=== PATIENT | female | born 1990 | race Caucasian/White ===

== ENCOUNTER 2019-12-16 21:18 | Emergency (ER) | payer BC, SELFPAY ==
--- NOTE | ~2019-12-16 | XR_ITS ---
XR finger 4th LT min 2V 12/16/2019 22:06 Indication: Trauma to the left fourth finger. Smashed finger in car door. Procedure: 3 views left fourth finger Comparison: No prior studies for comparison. Findings: There is a nondisplaced tuft fracture left fourth distal phalanx. Mild soft tissue swelling . No foreign bodies. Impression: 1: Nondisplaced tuft fracture left fourth distal phalanx. Reviewed, dictated and finalized at location A. Impression: 1: Nondisplaced tuft fracture left fourth distal phalanx.
[2019-12-16 21:28] VITALS: BP 143/68; PULSE 84; RESP 15; TEMP 36.4; O2SAT 98
--- NOTE | 2019-12-16 21:56 | ED.GENADULT ---
HPI - General Adult General Chief complaint: Extremity Injury, Upper Stated complaint: Smashed finger in door Time Seen by Provider: 12/16/19 21:51 History of Present Illness HPI narrative: Patient is a 29 y/o female complaining severe, pulsating pain in left ring finger. She states that she smashed her finger in car door 2 hours ago. She has no pain radiation. Pain is worse with each heart beat. She denies other injury. Related Data Allergies Allergy/AdvReac Type Severity Reaction Status Date / Time No Known Allergies Allergy Verified 12/16/19 22:12 Review of Systems Constitutional: Constitutional: Denies chills, Denies fever(s), Denies headache(s) and Denies weakness Eyes: Eyes: Denies blurry vision ENT: Denies headache(s) and Denies neck pain Cardiovascular: Cardiovascular: Denies chest pain and Denies dyspnea Respiratory: Respiratory: Denies cough and Denies dyspnea Gastrointestinal: Gastrointestinal: Denies abdominal pain, Denies diarrhea, Denies nausea and Denies vomiting Genitourinary: Genitourinary: Denies hematuria and Denies dysuria Musculoskeletal: Musculoskeletal: Denies back pain, Reports arthralgias (left finger pain) and Denies neck pain Neurologic: Denies headache(s) and Denies weakness Exam Const: General: no acute distress and well developed HENMT: Head: normocephalic Ears: external ears normal General nose exam: Normal external nose present Eyes: General: appearance normal, both eyes and all related structures Conjunctivae: conjunctivae normal Chest: Chest palpation & inspection: normal inspection of the chest Resp: Effort & Inspection: normal respiratory effort Skin: General skin exam: normal color and turgor normal Trauma: other (bruise left 4th finger tip, subungual hematoma) Extrem: General: normal to inspection, full ROM and no pedal edema Psych: Appearance: grossly normal Mental Status: mental status grossly normal Affect: normal affect Course Reevaluation(s) Reevaluation #1: Discussed with patient xray results. Offer patient nail trephination for subungual hematoma. However, patient declined. Date: 12/16/19 Time: 22:35 Vital Signs Vital signs: Vital Signs Temperature 36.4 C 12/16/19 21:28 Pulse Rate 84 12/16/19 21:28 Respiratory Rate 15 12/16/19 21:28 Blood Pressure 143/68 H 07/06/20 21:28 Pulse Oximetry 98 12/16/19 21:28 Temperature 36.4 C 12/16/19 21:28 Pulse Rate 83 12/16/19 22:53 Respiratory Rate 16 12/16/19 22:53 Blood Pressure 151/73 H 12/16/19 22:53 Pulse Oximetry 100 12/16/19 22:53 Medical Decision Making Vital Signs Vital Signs: Vital Signs Temperature 36.4 C 12/16/19 21:28 Pulse Rate 84 12/16/19 21:28 Respiratory Rate 15 12/16/19 21:28 Blood Pressure 143/68 H 12/16/19 21:28 Pulse Oximetry 98 12/16/19 21:28 Temperature 36.4 C 12/16/19 21:28 Pulse Rate 83 12/16/19 22:53 Respiratory Rate 16 12/16/19 22:53 Blood Pressure 151/73 H 12/16/19 22:53 Pulse Oximetry 100 12/16/19 22:53 Discharge Plan Discharge Clinical Impression: Fracture of finger, distal phalanx, left, closed, Subungual hematoma of finger of left hand Patient Disposition: Home, Self-Care Condition: Stable Instructions: Subungual Hematoma (ED), Finger Fracture (ED) Prescriptions: New hydrocodone-acetaminophen [[place]] 5-325 mg tablet 1 tablet PO Q6H PRN (Reason: pain) Qty: 15 RF: 0 Follow-up/Referrals: PHYSICIAN,SEWAGE PLANT OPERATOR [Primary Care Provider] - Jordyn Carvajal DO [Physician] - 1 Week Stand Alone Forms: Work/School Release IP Discharge Date/Time: 12/16/19 22:55
--- NOTE | 2019-12-16 22:52 | PC.NURSE ---
pt had her own finger splint that was applied prior to leaving.
[2019-12-16 22:53] VITALS: BP 151/73; PULSE 83; RESP 16; O2SAT 100
== END 2019-12-16 22:55 | disposition home or self-care (01) ==
PROVIDERS: Emergency Provider Emergency Medicine
DX: S62.635A Displaced fracture of distal phalanx of left ring finger, initial encounter for closed fracture (principal); V48.4XXA Person boarding or alighting a car injured in noncollision transport accident, initial encounter
CPT/HCPCS: 73140; 99284

== ENCOUNTER 2020-01-23 11:25 | Observation (INO) | payer BC, SELFPAY ==
--- NOTE | 2020-01-23 11:54 | PM.IMHP ---
H&P: HPI History of Present Illness Date/Time: 01/23/20 11:54 Chief complaint: hyperemesis Narrative: Luciana Rodriguez is a 29 year old female with n/v unable to keep food and fluid down for 3 days new ob hyperemesis Review of Systems Review of Systems: All systems reviewed & are unremarkable except as noted in HPI and below PMFSH Family History Family History Grandparent Cancer Social History Social History (Updated 01/23/20 @ 20:13 by Caio Collins MD) Smoking packs per day: 0.25 Smoking cigarettes per day: 5.0 Years smoked: 11 Smoking pack-years: 2.75 Smoking status: Former smoker Tobacco type: cigarettes Second hand tobacco smoke exposure: Yes Alcohol intake: never Substance use: never Substance use type: does not use Living arrangements: with friend(s) Occupation/Education: occupation Additional occupation/education comments: [employer], 2 yr college Meds Home Medications and Allergies Home Medications Medication Instructions Recorded Confirmed Type No Home Medications 01/23/20 01/23/20 History Allergies Allergy/AdvReac Type Severity Reaction Status Date / Time procaine [From Novocain] AdvReac Nausea and Verified 01/23/20 11:58 Vomiting Exam Const: General: no acute distress HENMT: Ears: TM's normal bilaterally Eyes: General: appearance normal, both eyes and all related structures Neck: Neck: supple Resp: Auscultation: clear to auscultation bilaterally Cardio: Rate: regular rate Rhythm: regular rhythm GI: GI Palp: Yes Soft to palpation Percussion: Yes normal to percussion Auscultation: normal bowel sounds : External Female Exam: normal external appearance Urinary Catheter: Urinary Catheter: urine dark Skin: General skin exam: normal color Neuro: General: gait normal and deep tendon reflexes 2+ bilaterally Cognition (Neuro): normal cognition Speech: normal speech Motor exam (neuro): 5/5 motor strength present throughout, Normal motor muscle tone present throughout and Abnormal motor strength present Sensory Exam: normal sensation Extrem: General: normal to inspection Psych: Mental Status: mental status grossly normal Affect: normal affect Assessment and Plan Assessment and plan (1) Hyperemesis gravidarum: Code(s): O21.0 - Mild hyperemesis gravidarum Status: Acute Assessment and Plan: iv fluids and antiemetics ultrasound (2) Heterozygous MTHFR mutation [id number]: Code(s): E72.12 - Methylenetetrahydrofolate reductase deficiency Status: Acute (3) HPV (human papilloma virus) infection: Code(s): B97.7 - Papillomavirus as the cause of diseases classified elsewhere Status: Acute (4) MRSA (methicillin resistant Staphylococcus aureus) carrier: Code(s): Z22.322 - Carrier or suspected carrier of Methicillin resistant Staphylococcus aureus Status: Acute (5) Rh negative state in antepartum period: Code(s): O26.899 - Other specified related conditions, unspecified trimester; Z67.91 - Unspecified blood type, Rh negative Status: Acute (6) Smoker: Code(s): F17.200 - Nicotine dependence, unspecified, uncomplicated Status: Acute (7) Anemia: Code(s): D64.9 - Anemia, unspecified Status: Acute (8) History of labor: Code(s): Z87.51 - Personal history of pre-term labor Status: Acute Quality If No VTE Prophylaxis Answer both mechanical and pharmacologic: Reason no mechanical VTE proph: low risk/not indicated
[2020-01-23 12:25] VITALS: BMI 33.7
--- NOTE | 2020-01-23 12:25 | OBADM ---
This patient, Luciana Rodriguez, admitted to the OB room OB Post 112 for observation. Patient/family oriented to hospital policies and general routines including ID bracelet, bed and alarms, visiting hours, pain management, procedures, bathroom and other care routines, personal items, smoking policy, room service/diet, and visiting hours. Patient/Family are encouraged to report perceived risks to care and to ask questions if they do not understand what they are told or what they should do.
[2020-01-23] MEDS: DEXTROSE 5%/LACTATED RINGERS 1,000 ML 999 ML IV CONT (12:38)
[2020-01-23] MEDS: METOCLOPRAMIDE HCL INJ 10 MG/2 ML VIAL IV PUSH (12:39)
[2020-01-23 13:01] LABS: Add Urine Microscopic? YES; Appearance Urine Clear (Clear); Bacteria Urine Trace /hpf; Bilirubin Urine Negative (Negative); Blood Urine Negative (Negative); Color Urine Yellow (Yellow); Glucose Urine UA Negative (Negative); Ketones Urine 1+ mg/dL (Negative); Leukocyte Esterase Ur Negative LEU/UL (Negative); Mucus Urine Few /lpf; Nitrate Urine Negative (Negative); Protein Urine Negative (Negative); RBC Urine 0-2 /hpf (0-2); Specific Grav Ur 1.017 (1.001-1.035); Squamous Epithelial Cell Urine Few /hpf (Few); Urobilinogen Urine Negative mg/dL (<2.0); WBC Urine 0-3 /hpf
[2020-01-23 13:10] VITALS: BP 122/71; PULSE 55; RESP 16; TEMP 36.9
--- NOTE | 2020-01-23 13:33 | PC.NURSE ---
Dr. Collins notified I walked into pt room to check on her and she had pulled her IV out stating, I have to go now! I just got a text from my mom; my grandmother is dying! Informed pt feeling better, has tolerated a popcicle and states nausea has almost totally resolved. I have not been able to do her OB U/S <14 wks yet, but I have the prescription for it to send with pt. OK to discharge to home.
== END 2020-01-23 13:43 | disposition home or self-care (01) ==
PROVIDERS: Admitting Provider Obstetrics & Gynecology; Visit Provider Obstetrics & Gynecology
DX: O21.0 Mild hyperemesis gravidarum (principal); Z87.891 Personal history of nicotine dependence; Z3A.09 9 weeks gestation of pregnancy
CPT/HCPCS: 81001; 96361; 96374; G0378; G0379; J2765; J7121

== ENCOUNTER 2020-02-21 11:10 | Outpatient (CLI) | payer BC, SELFPAY ==
--- NOTE | ~2020-02-21 | US_ITS ---
EXAMINATION: US OB <= 14 weeks fetus DATE: 02/21/2020 11:52 INDICATION: First trimester dating TECHNIQUE: Real-time pelvic transabdominal and transvaginal ultrasound was performed. COMPARISON: None. FINDINGS: The uterus measures 12.5 x 8.9 x 10.0 cm. There is an intrauterine gestational sac. A yolk sac is identified. heart motion is identified measuring 152 beats per minute (bpm) by M-mode D oppler. The placenta is anterior. The right ovary is not visualized however no right adnexal abnormality is seen. The left ovary measur es 4.3 x 1.8 x 2.9 cm. There is normal vascular flow in the left ovary. There is no free fluid in the pelvis. The following biometric data were obtained: Biparietal diameter (BPD): 2.2 cm; head circumference (HC): 8.3 cm; abdominal circumference (AC): 7.3 cm; femur length (FL): 1.0 cm. These measurements are concordant. Estimated weight is 76 g +/- 11 g. As single measurements, these parameters are each equal to the following estimated gestational ages w ith ranges of +/- 2 standard deviations: BPD: 13 weeks 4 days ( 12 weeks 3 days - 14 weeks 6 days). HC: 13 weeks 5 days ( 12 weeks 3 days - 14 weeks 6 days). AC: 13 weeks 6 days ( 12 weeks 2 days - 15 weeks 4 days). FL: 13 weeks 0 days ( 11 weeks 4 days - 14 weeks 3 days). estimated gestational age based solely on measurements from this exam is 13 weeks 4 days +/- 1 weeks 0 days. IMPRESSION: 1. Live intrauterine with an estimated gestational age of 13 weeks and 4 day(s) (+/-) 7 day (s) and an estimated delivery date of 08/24/2020. Reviewed, dictated and finalized at location B. IMPRESSION: 1. Live intrauterine with an estimated gestational age of 13 weeks an d 4 day(s) (+/-) 7 day(s) and an estimated delivery date of 08/24/2020.
== END 2020-02-21 11:11 | disposition home or self-care (01) ==
DX: Z34.90 Encounter for supervision of normal pregnancy, unspecified, unspecified trimester (principal); Z3A.13 13 weeks gestation of pregnancy
CPT/HCPCS: 76801

== ENCOUNTER 2020-03-17 12:51 | Outpatient (CLI) | payer BC, SELFPAY ==
--- NOTE | ~2020-03-17 | US_ITS ---
EXAMINATION: US OB limited DATE: 03/17/2020 13:24 INDICATION: Absent heart tones during early second trimester TECHNIQUE: Real-time ultrasound of the pelvis was performed. The interpreting radiologist was not pre sent for the study. COMPARISON: 02/21/2020 FINDINGS: There is a single living fetus in transverse lie. The placenta is posterior. No heart motion ev ident on color or M-mode Doppler consistent with demise. IMPRESSION: 1. Single intrauterine fetus with no evident heart motion consistent with demise. Reviewed, dictated and finalized at location A.
== END 2020-03-17 12:52 | disposition home or self-care (01) ==
LOC: ANHIMG 12:54
PROVIDERS: PCP Obstetrics & Gynecology; Visit Provider Obstetrics & Gynecology
DX: O36.8399 Maternal care for abnormalities of the fetal heart rate or rhythm, unspecified trimester, other fetus (principal); Z3A.00 Weeks of gestation of pregnancy not specified
CPT/HCPCS: 76815

== ENCOUNTER 2020-03-19 12:13 | Day surgery (SDC) | payer BC, SELFPAY ==
[2020-03-19] VITALS (10 sets, daily range): BP systolic 102–146; BP diastolic 48–82; PULSE 69–126; RESP 14–20; TEMP 36.4–37.8; O2SAT 95–100; BMI 31.9
--- NOTE | 2020-03-19 12:36 | PM.IMHP ---
H&P: HPI History of Present Illness Date/Time: 03/19/20 12:36 Chief complaint: retained products Narrative: Luciana Rodriguez is a 29 year old female, , presents for demise incomplete abPmhx premature labor, HPV, MTHFR, Rh neg.Brought in Fetus with evidence of gastroschisis. Umbilical cord protruding from cervical os, unable to pass placenta. Now being taken to the OR for suction D &C. Review of Systems Review of Systems: All systems reviewed & are unremarkable except as noted in HPI and below Constitutional: Constitutional: Reports no additional constitutional complaints Eyes: Eyes: Reports no additional eye complaints ENT: Reports system reviewed and no additional complaints, except as documented Cardiovascular: Cardiovascular: Reports no additional cardiovascular complaints Respiratory: Respiratory: Reports no additional respiratory complaints Gastrointestinal: Gastrointestinal: Reports no additional gastrointestinal complaints Genitourinary: Genitourinary: Reports no additional female genitourinary complaints Musculoskeletal: Musculoskeletal: Reports no additional musculoskeletal complaints Integumentary/Breasts: Skin/Breast: Reports system reviewed and no additional complaints, except as docu Neurologic: Reports system reviewed and no additional complaints, except as documented Psychiatric: Psychiatric: Reports no additional psychiatric complaints Endocrine: Endocrine: Reports no additional endocrine complaints Hematologic/Lymphatic: Hematologic/Lymphatic: Reports no additional hematologic/lymphatic complaints Allergic/Immunologic: Allergic/Immunologic: Reports no additional allergic/immunologic complaints [facility] Past Medical History Medical History (Updated 03/19/20 @ 12:48 by Caio Collins MD) Anemia Heterozygous MTHFR mutation [id number] History of labor HPV (human papilloma virus) infection Incomplete miscarriage MRSA (methicillin resistant Staphylococcus aureus) carrier Retained placenta Rh negative state in antepartum period Smoker Vaginal delivery 2019 Vaginal delivery 2009 Family History Family History Grandparent Cancer Social History Social History Smoking packs per day: 0.25 Smoking cigarettes per day: 5.0 Years smoked: 11 Smoking pack-years: 2.75 Smoking status: Former smoker Tobacco type: cigarettes Second hand tobacco smoke exposure: Yes Alcohol intake: never Substance use: never Substance use type: does not use Additional occupation/education comments: [employer], 2 yr college Meds Home Medications and Allergies Home Medications Medication Instructions Recorded Confirmed Type No Home Medications 01/23/20 01/23/20 History Allergies Allergy/AdvReac Type Severity Reaction Status Date / Time procaine [From Novocain] AdvReac Nausea and Verified 01/23/20 11:58 Vomiting Exam Const: General: cooperative, healthy appearing, comfortable and well developed Nutritional Appearance: average body habitus Orientation/consciousness: oriented to person Limitations: no limitations HENMT: Head: normal to inspection Eyes: General: appearance normal, both eyes and all related structures Neck: Neck: normal visual inspection Chest: Chest palpation & inspection: normal inspection of the chest Breast/axilla inspection: normal inspection of the breasts Breast/axilla palpation: normal palpation of the breasts Resp: Effort & Inspection: normal respiratory effort and able to speak in complete sentences Cardio: Jugular venous distension: no JVD Rate: regular rate Rhythm: regular rhythm GI: Inspection: normal to inspection GI Palp: Yes abdominal tenderness : External Female Exam: normal external appearance Speculum Exam - Vagina: tissue present in vagina Speculum Exam - Cervix: Cervical os open Bimanual e
--- NOTE | 2020-03-19 12:53 | WPDHPUPDATE1 ---
History and Physical Update Update Date/Time: 03/19/20 12:53 History and Physical has been reviewed, including an updated exam of the patient. There are NO changes in the patient's condition. Risks, benefits, and alternatives have been discussed and questions answered. Patient agrees to proceed with procedure. 29yo F, , presents for demise incomplete ab Pmhx premature labor, HPV, MTHFR, Rh neg Here for suction D&C. Informed consent obtained.
--- NOTE | 2020-03-19 14:08 | WPDANESEPP ---
Anes - Eval Pre Procedure Procedure: Operation Date: 03/19/20 13:30 Proposed Procedures p Suction Dilatation and Curettage - Caio Collins MD Date/Time: 03/19/20 14:08 Surgeon: Dennis Pre Op Diagnosis: retained products Patient Data Age: 29 Gender: F Height: Weight: Allergies Allergy/AdvReac Type Severity Reaction Status Date / Time procaine [From Novocain] AdvReac Nausea and Verified 01/23/20 11:58 Vomiting Home Medications Medication Instructions Recorded Confirmed Type No Home Medications 01/23/20 01/23/20 History : gestational age Patient hx anesthesia problems: none Family hx anesthesia problems: none PMFSH Past Medical History Medical History (Updated 03/19/20 @ 12:48 by Caio Collins MD) Anemia Heterozygous MTHFR mutation [id number] History of labor HPV (human papilloma virus) infection Incomplete miscarriage MRSA (methicillin resistant Staphylococcus aureus) carrier Retained placenta Rh negative state in antepartum period Smoker Vaginal delivery 2019 Vaginal delivery 2009 Family History Family History Grandparent Cancer Social History Social History Smoking packs per day: 0.25 Smoking cigarettes per day: 5.0 Years smoked: 11 Smoking pack-years: 2.75 Smoking status: Former smoker Tobacco type: cigarettes Second hand tobacco smoke exposure: Yes Alcohol intake: never Substance use: never Substance use type: does not use Additional occupation/education comments: [employer], 2 yr college Exam Day of Procedure 03/19/20 14:08
--- NOTE | 2020-03-19 14:17 | WPDANESEFPP ---
Anes - Eval Final PreProcedure Day of Procedure 03/19/20 14:17 Patient weight: overweight Heart: regular rate and rhythm Lungs: clear to auscultation Airway: Mallampati scale class II Neurological: alert and oriented Last oral intake: >/= 8 hours ASA classification: II Emergent: yes Anesthetic plan: proceed Anesthesia type and monitoring: general ETT and standard monitoring Informed Consent: The patient's anesthetic plan and its attendant risks and benefits were discussed with the patient/family/POA. Questions were solicited and answers provided to the satisfaction of the patient/family/POA.
[2020-03-19] MEDS: LACTATED RINGERS 1,000 ML 30 ML IV CONT ×2 (14:18→15:05)
[2020-03-19] MEDS: ACETAMINOPHEN 500 MG TABLET 1000 MG PO (14:18)
[2020-03-19] MEDS: ceFAZolin 2 GM/D5W 50 ML 2 GM/50 ML BAG IVPB (14:30)
--- NOTE | 2020-03-19 14:43 | SUR.PREOP ---
1430:PER DR. SAMANIEGO'S REQUEST, PT AND HER SGNF OTHR ARE TO GO TO [facility] FOR LOSS COUNSELING AND TO MAKE ARRANGEMENTS FOR FETUS POST RECOVERY. YONI TYLER FROM OB HERE IN PREOP TO TALK TO PT AND TO TAKE SPECIMEN
[2020-03-19] MEDS: OXYTOCIN 10 UNITS/ML VIAL 40 UNITS IM (14:49)
--- NOTE | 2020-03-19 14:59 | P.OP_ITS ---
Procedure Note - Detailed Date of procedure: 03/19/20 Pre-op diagnosis: retained products Incomplete spontaneous miscarriage at 17 weeks gestation gastroschisis Heterozygous MTHFR mutation Post-op diagnosis: same Procedure performed: [place] suction D and C with removal of products of conception Description of procedure: Informed consent obtained patient was taken to the operating room where she was given IV general anesthesia and she was oral endotracheally intubated without difficulty and a time-out was performed she was prepped and draped in the usual sterile fashion and a weighted speculum was placed into the vagina anterior retractors placed a single-tooth tenaculum placed on the anterior lip of the cervix the uterus was sounded. A 14. Curved curette suction curettage of the endometrial cavity was then performed with removal of all products of conception and placenta with ring forceps. Sharp curettage of the endometrial cavity viewed he removed revealed removal of all products of conception. Pitocin given wide-open IV allowed for excellent uterus contraction and minimize blood loss to 400 mL the procedure was completed the instrument was removed and the speculum was removed the patient was extubated in the operating room taken recovery room stable condition. She will be taken to the [facility] for post miscarriage grieving and Share program. Anesthesia: GETA Surgeon: Caio Collins MD Construction Crew Member: Derik Estimated blood loss (mL): 400 IV fluids (mL): 1,000 Urine output (mL): 10 Drains: No Packing: No Pathology: yes (Products of conception and placenta) Complications: None Condition: stable Disposition: same day Findings: Uterus 16 cm size cervix dilated greater than 10 mm 14 mm curved curette utilized all products of conception removed hemostasis with oxytocin 40 units per 1 L running at 999 mL per hour bleeding minimal after procedure uterus contracted down to 12 cm size. Cervix normal vagina normal vulva normal Antibiotic prophylaxis Ancef 2 g VT prevention not applicable patient ambulatory Counts correct complications none patient taken to recovery room stable condition
--- NOTE | 2020-03-19 15:17 | SUR.PHASEI ---
1505 Samm EXTENSION PROFESSOR stated that 40 Units of pitocin was placed in bag 1 during case. Samm EXTENSION PROFESSOR placed 20 Units of pitocin in bag 2 and started infusing.
[2020-03-19] MEDS: RHO(D) IMMUNE GLOBULIN 300 MCG SYRINGE IM (15:37)
--- NOTE | 2020-03-19 15:44 | SUR.PHASEI ---
1544 - dr. stuart at bedside talking with pt.
--- NOTE | 2020-03-19 16:04 | SUR.PHASEII ---
1547; PT ARRIVED PER STRETCHER INTO OPR. SIG OTHER IN ROOM. PT AWAKE, RESTING QUIETLY. DENIES PAIN. STATES MINOR CRAMPING. ABDOMEN SOFT. IVF ARE 1 LITER OF LR WITH 20 UNITS OF PITOCIN MIXED IN. EVEN THOUGH MAR STATES JUST LR. THIS WAS STARTED FROM LEE BLASTING MACHINE OPERATOR. 1605; PT SHIVERING. NGUYEN MCMILLAN APPLIED ON MEDIUM FOR COMFORT.
--- NOTE | 2020-03-19 16:22 | SUR.PHASEII ---
PT AWAKE, EATING CRACKERS. SIG OTHER AT BEDSIDE. PT DENIES PAIN, STATES MILD CRAMPING. 1 LITER OF LR WITH PITOCIN 20 UNITS CONTINUES TO INFUSE. ABDOMEN SOFT. SM VAG FLOW
--- NOTE | 2020-03-19 17:13 | SUR.PHASEII ---
PT AWAKE AND ALERT. TALKATIVE. DENIES PAIN OR CRAMPING. SM-MOD AMT DARK RED VAG FLOW TO PERIPAD. ABDOMEN SOFT. PT EATING AND DRINKING. SIG OTHER AT BEDSIDE.
--- NOTE | 2020-03-19 17:18 | SUR.PHASEII ---
1 LITER OF LR WITH 20UNITS OF PITOCIN COMPLETE.
--- NOTE | 2020-03-19 17:32 | SUR.PHASEII ---
PT DRESSED. WALKED TO BATHROOM GAIT STEADY.
--- NOTE | 2020-03-19 18:18 | PC.NURSE ---
1800-VSS. Pt reports no pain. Fob at side. Pt requests to have baby in room.
--- NOTE | 2020-03-19 19:01 | PC.NURSE ---
1900--[facility] ([place]) contacted.
--- NOTE | 2020-03-19 19:04 | PC.NURSE ---
1835--Rf Test Engineer contacted.
--- NOTE | 2020-03-19 19:15 | PC.NURSE ---
Information regarding share program given to pt. Pt filled out paperwork. Memento and bears given to pt. pt has no other questions at this time.
--- NOTE | 2020-03-19 19:35 | PC.NURSE ---
pt ambulated with significant other to personal vehicle with her belongings.
--- NOTE | 2020-03-19 19:54 | PC.NURSE ---
baby boy taken down to pathology.
== END 2020-03-19 19:35 | disposition home or self-care (01) ==
LOC: ANHSURGERY 15:50 → ANHLDR 17:54
PROVIDERS: Visit Provider Obstetrics & Gynecology
PROC: (CPT 59812; principal; 2020-03-19 13:30)
DX: O03.4 Incomplete spontaneous abortion without complication (principal); E72.12 Methylenetetrahydrofolate reductase deficiency; D64.9 Anemia, unspecified; B97.7 Papillomavirus as the cause of diseases classified elsewhere; Z22.322 Carrier or suspected carrier of Methicillin resistant Staphylococcus aureus; F17.210 Nicotine dependence, cigarettes, uncomplicated
CPT/HCPCS: 59812; 36415; 85461; 88300; 88305; 90384; 99199; A9270; J0330; J0690; J1100; J2250; J2405; J2590; J2704; J2790; J3010; J7120

== ENCOUNTER 2023-11-22 09:30 | Emergency (ER) | payer OTHER, SELFPAY ==
--- NOTE | 2023-11-22 09:32 | ED.EXTPRO ---
HPI - Extremity Problem General Chief complaint: Extremity Injury, Upper Stated complaint: L ARM PAIN Time Seen by Provider: 11/22/23 09:31 Source: patient Mode of arrival: ambulatory Limitations: no limitations History of Present Illness HPI Narrative: Patient is a 33-year-old female who presents with 4 days of left wrist pain that radiates up arm. 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 Patient reports pain shoots up arm when wiggling fingers. Has been using wrist wrap. Patient reports there was swelling that has gone down significantly since using wrap. Has not taken anything for pain. Denies any fever, chills, nausea, vomiting, diarrhea. Related Data Allergies Allergy/AdvReac Type Severity Reaction Status Date / Time procaine [From Novocain] AdvReac Mild Nausea and Verified 11/22/23 09:38 Vomiting Review of Systems Review of Systems: All systems reviewed & are unremarkable except as noted in HPI and below Constitutional: Constitutional: Denies body ache(s), Denies chills, Denies fatigue, Denies fever(s), Denies headache(s), Denies malaise and Denies weakness Eyes: Eyes: Denies blurry vision, Denies irritation and Denies loss of vision ENT: Denies otalgia, Denies headache(s), Denies nasal discharge, Denies sinus pain and Denies sore throat Cardiovascular: Cardiovascular: Denies chest pain, Denies irregular heart rhythm and Denies dyspnea Respiratory: Respiratory: Denies dyspnea Gastrointestinal: Gastrointestinal: Denies abdominal pain, Denies melena, Denies hematochezia, Denies diarrhea, Denies nausea and Denies vomiting Musculoskeletal: Musculoskeletal: Denies back pain, Denies myalgias, Reports arthralgias and Reports joint swelling Integumentary/Breasts: Skin/Breast: Denies pruritus and Denies rash Neurologic: Denies headache(s), Denies loss of vision and Denies weakness Psychiatric: Psychiatric: Reports no additional psychiatric complaints Endocrine: Endocrine: Denies fatigue PMFSH Past Medical History Medical History Anemia 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 History of labor HPV (human papilloma virus) infection Incomplete miscarriage MRSA (methicillin resistant Staphylococcus aureus) carrier Retained placenta Rh negative state in antepartum period Smoker Vaginal delivery 2019 Vaginal delivery 2008 Family History Family History Grandparent Cancer Social History Social History Smoking packs per day: 0.25 Smoking cigarettes per day: 5.0 Years smoked: 11 Smoking pack-years: 2.75 Smoking status: Former smoker Tobacco type: cigarettes Second hand tobacco smoke exposure: Yes Alcohol intake: never Substance use: never Substance use type: does not use Living arrangements: with friend(s) Occupation/Education: occupation Additional occupation/education comments: [employer], 2 yr college Comments At time of signature, agree with nursing past medical, surgical, social and family history. There is no relevant family history pertinent to the presenting complaint. Exam Const: General: cooperative, healthy appearing, comfortable, no acute distress and well nourished Nutritional Appearance: well nourished Orientation/consciousness: patient oriented x3 Limitations: no limitations HENMT: Head: normal to inspection, normocephalic and atraumatic Ears: hearing grossly normal bilaterally and external ears normal Face/Nose/Sinus: Normal external nose present, normal facial exam and face symmetric Face and sinus: normal facial exam and face symmetric Mouth: Yes lip normal Eyes: General: appearance normal, both eyes and all related structures Alignment and Position: alignment normal and position normal Periorbital: periorbital findings normal Eyelids: eyelids normal Pupils: Equal, round and ronnie
== END 2023-11-22 10:07 | disposition home or self-care (01) ==
PROVIDERS: Emergency Provider Nurse Practitioner Family
DX: G56.02 Carpal tunnel syndrome, left upper limb (principal); Z87.891 Personal history of nicotine dependence; Z86.14 Personal history of Methicillin resistant Staphylococcus aureus infection
CPT/HCPCS: 99213; G0463